=== PATIENT | female | born 1965 | race Caucasian/White ===

== ENCOUNTER → 2019-01-14 | Outpatient (CLI) | payer BC ==
[~2019-01-14] MED LIST: DESO1TAB32 PO; LEVO50TA86 PO; MULT-1081 PO; NAPR-1043 PO; OXYB15TA14 PO; VALA500T63 PO; [UNRECOGNIZED DRUG - CODE] PO
--- NOTE | 2019-01-15 11:11 | RADIOLOGY IMAGING REPORT ---
FACILITY: [facility] [place] PATIENT NAME: SILVIANO HENRIQUEZ : [id number] MR: [id number] V: [id number] EXAM DATE: ORDERING PHYSICIAN: LOS NOLAN TECHNOLOGIST: Sultana Hillman PROCEDURE: BILATERAL DIGITAL SCREENING MAMMOGRAM WITH CAD ASSISTED INTERPRETATION & 3D TOMOSYNTHESIS REASON FOR STUDY: Screening. FAMILY HISTORY OF BREAST CANCER: Maternal and paternal grandmothers, maternal and paternal aunts. BREAST PROCEDURES/TREATMENTS: None. COMPARISON: Prior mammograms 07/27/17, 07/25/16, 07/23/15, 04/17/14, 11/19/12. VIEWS OBTAINED: 2D & 3D full field CC & MLO. BREAST DENSITY: The breasts are heterogeneously dense which can obscure small masses. MAMMOGRAM FINDINGS: There is an asymmetry in the lateral portion of the Left breast on the Left CC view for which Spot compression is recommended. IMPRESSION: BIRADS 0: Incomplete. Additional views of the Left breast recommended as described. DIAGNOSTIC CATEGORY 0--INCOMPLETE: NEED ADDITIONAL IMAGING EVALUATION. RECOMMENDATIONS: ADDITIONAL MAMMOGRAPHIC VIEWS REQUIRED: LEFT BREAST. Dictated by: Nydia Ibrahim M.D. on 01/14/2019 at 17:30 Transcribed by: BRENNAN on 01/15/2019 at 8:37 Approved by: Nydia Ibrahim M.D. on 01/15/2019 at 11:10 [facility]
== END ==
LOC: MAMO 00:57
PROVIDERS: ATTEND Family Medicine
DX: Z12.31 Encounter for screening mammogram for malignant neoplasm of breast (principal); R92.8 Other abnormal and inconclusive findings on diagnostic imaging of breast
CPT/HCPCS: 77063; 77067